=== PATIENT | male | born 1965 | race Hispanic/Latino ===

== ENCOUNTER → 2017-08-02 | Outpatient (CLI) | payer OTHER ==
[~2017-08-02] MED LIST: BIPOLAR MED; CEFUROXIME250 MG PO; FLOMAX0.4 MG PO; OMEPRAZOLE40 MG PO
--- NOTE | 2017-08-02 14:15 | Diagnostic Imaging Report ---
PROCEDURE:X-RAY ABDOMEN - KUB COMPARISON:None. INDICATIONS:CALCULUS OF KIDNEY FINDINGS: Nonobstructive bowel gas pattern. No signs of pneumoperitoneum. Right nephroureteral stent in place. Approximately 9 mm calcification overlying left renal pelvis, adjacent to the tip of the right nephroureteral stent. There is also a 2 mm calcification abutting the proximal right ureteral stent. No calcification overlying left renal shadow. No acute osseous abnormality. Left pelvic phleboliths. CONCLUSION: Approximately 9 mm calculus overlying right renal pelvis, adjacent to the tip of the right nephroureteral stent. A 2 mm calcification abutting the proximal right ureteral stent, likely a ureteral calculus. Nonobstructive bowel gas pattern. Dictated by: Reinaldo Lala M.D. on 08/02/2017 at 14:14 Electronically approved by: Reinaldo Lala M.D. on 08/02/2017 at 14:14
== END ==
LOC: RAD 12:29
PROVIDERS: ATTEND Urology
DX: N20.0 Calculus of kidney (principal)
CPT/HCPCS: 74018

== ENCOUNTER → 2017-08-13 | Day surgery (SDC) | payer OTHER ==
[~2017-08-13] MED LIST changes: +CEFAZOLIN SOD 1 GM VIAL ONE; +DEXAMETHASONE SOD PHOS INJ 4 MG/ML VIAL ONE; +FENTANYL CITRATE/PF 100MCG/2 ML INJ ONE; +IOPAMIDOL 610MG/1ML 300 MG/ML VIAL IV ONE; +LIDOCAINE HCL 2% LOCAL INJ 5 ML SDV VIAL INJ ONE; +MIDAZOLAM HCL 2 MG/2 ML VIAL ONE; +ONDANSETRON HCL INJ 2 MG/ML VIAL ONE; +PROPOFOL IV EMULSION 10 MG/ML 20 ML VIAL ONE; +SEVOFLURANE INHAL SOLN 250 ML PEN BTL ONE
--- OUTSIDE RECORDS SUMMARY | 2017-08-13 09:29 | XMS REPORT | Summary of Care ---
Author Author Vane Rutledge LVN Organization Unknown Address Unknown Phone Unavailable Care Team Providers Care Leader Tier Name Role Phone APOLINAR VARGAS N.P. Unavailable Unavailable SILVER Pabon, EDGAR Bay Unavailable Vane Rutledge LVN Unavailable Unavailable SILVER DIXON [place], EDGAR Tolliver Unavailable Unavailable Todd Centeno MD Unavailable Unavailable Unavailable Unavailable Functional Status Name Dates Details Functional status health issues are not documented Status: Name Dates Details Cognitive status health issues are not documented Status: Problems Name Dates Details Fatigue (780.79, R53.83) Status: Active Pain in hand (729.5, M79.643) Status: Active Cerumen impaction (380.4, H61.20) Status: Active Rectal pain (569.42, K62.89) Status: Active Abdominal pain (789.00, R10.9) Status: Active Constipation (564.00, K59.00) Status: Active Rectal pain (569.42, K62.89) Status: Active Anxiety (300.00, F41.9) Status: Active Insomnia (780.52, G47.00) Status: Active Acute frontal sinusitis (461.1, J01.10) Status: Active Chronic adhesive otitis media, bilateral (385.10, H74.13) Status: Active Acute upper respiratory infection (465.9, J06.9) Status: Active LOLA (obstructive sleep apnea) (327.23, G47.33) Status: Active Abdominal pain (789.00, R10.9) Status: Active Colon cancer screening (V76.51, Z12.11) Status: Active Vertigo (780.4, R42) Status: Active Hemorrhoids (455.6, K64.9) Status: Active Cellulitis (682.9, L03.90) Status: Active Acute suppurative otitis media (382.00, H66.009) Status: Active Cyst of buttocks (706.2, L72.9) Status: Active Impacted cerumen of left ear (380.4, H61.22) Status: Active Flu vaccine need (V04.81, Z23) Status: Active Otomycosis (111.8, B36.9) Status: Active GERD without esophagitis (530.81, K21.9) Status: Active Headache (784.0, R51) Status: Active Low back pain (724.2, M54.5) Status: Active Dysthymia (300.4, F34.1) Status: Active Left shoulder pain (719.41, M25.512) Status: Active Impingement syndrome of left shoulder (726.2, M75.42) Status: Active Shoulder pain, right (719.41, M25.511) Status: Active 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 * Refills: 0 Active TraMADol HCl - 50 MG Oral Tablet TAKE 1 TABLET EVERY 4 TO 6 HOURS NEEDED FOR PAIN. * Quantity: 60 Refills: 0 Active Tamsulosin HCl - 0.4 MG Oral Capsule TAKE 1 CAPSULE DAILY AT BEDTIME * Quantity: 30 Refills: 1 EDGAR SHEPPARD M.D. * Start : 05-Aug-2017 Active Cefuroxime Axetil 250 MG Oral Tablet TAKE 1 TABLET TWICE DAILY * Quantity: 14 Refills: 0 EDGAR SHEPPARD M.D. * Start : 05-Aug-2017 End : 12-Aug-2017 Active Oxybutynin Chloride ER 10 MG Oral Tablet Extended Release 24 Hour TAKE ONE TABLET BY MOUTH DAILY * Refills: 2 EDGAR SHEPPARD M.D. * Start : 07-Aug-2017 Active Allergies and Adverse Reactions Name Dates Details No Known Drug Allergies (Allergy) Status: Active Past Medical History Name Dates Details History of backache (V13.59, Z87.39) Status: Resolved History of headache (V13.89, Z87.898) Status: Resolved Procedures Procedure Dates Details History of Cholecystectomy Completed History of Hernia Repair Completed History of arm surgery Completed Immunization Name Dates Details Fluzone INJ Lot #: [id number] on: 11-Apr-2016 Family History Name Dates Details Family history of Diabetes Mellitus (V18.0) Status: Active Name Dates Details Family history of Hypertension (V17.49) Status: Active Social History Name Dates Details - Status: Name Dates Details Never smoker Vital Signs Date Test Result Details [id number] BP Systolic 113 mm[Hg] Status: Comments: Location: LUE; Position: Sitting BP Diastolic 88 mm[Hg] Status: Comments: Location: LUE; Position: Sitting Height 67 in Status: Weight 177.8 lb Status: Body Mass Index Calculated 27.85 kg/m2 Status: Body Surface Area Calculated 1.92 m2 Status: Temperature 98.6 f Status: Comments: Method: Oral Heart Rate 105 /min Status: Respiration Rate 16 /min Status: Results Date Description Value Details Results not documented Plan of Care Name Dates Details Planned Observations Planned Goals not documented Instructions Name Dates Details Instructions not documented Encounters Appointment; APOLINAR VARGAS NP Encounter Diagnosis: Problem not documented On: 01-Sep-2015 10:00 Appointment; TODD CENTENO M.D. Encounter Diagnosis: Problem not documented On: 26-Sep-2015 13:45 Appointment; APOLINAR VARGAS NP Encounter Diagnosis: Problem not documented On: 29-Feb-2016 9:45 Appointment; APOLINAR VARGAS NP Encounter Diagnosis: Problem not documented On: 11-Apr-2016 9:00 Appointment; TODD CENTENO M.D. Encounter Diagnosis: Problem not documented On: 05-Jun-2016 13:30 Appointment; TODD CENTENO M.D. Encounter Diagnosis: Problem not documented On: 05-Jun-2016 14:30 Appointment; TODD CENTENO M.D. Encounter Diagnosis: Problem not documented On: 15-Jun-2016 15:30 Appointment; TODD CENTENO M.D. Encounter Diagnosis: Problem not documented On: 22-Jun-2016 15:30 Appointment; TODD CENTENO M.D. Encounter Diagnosis: Problem not documented On: 27-Aug-2016 15:45 Appointment; TODD CENTENO M.D. Encounter Diagnosis: Problem not documented On: 04-Sep-2016 9:30 Appointment; APOLINAR VARGAS NP Encounter Diagnosis: Problem not documented On: 18-Sep-2016 9:30 Appointment; EDGAR SHEPPARD M.D. Encounter Diagnosis: Problem not documented On: 21-Nov-2016 14:45 Appointment; SHERRI GALVIN M.D. Encounter Diagnosis: Problem not documented On: 27-Nov-2016 11:00 Appointment; SHERRI GALVIN M.D. Encounter Diagnosis: Problem not documented On: 25-Dec-2016 10:15 Appointment; TODD CENTENO M.D. Encounter Diagnosis: Problem not documented On: 19-Apr-2017 8:15 Appointment; NELIDA WINCHESTER NP Encounter Diagnosis: Problem not documented On: 08-Jul-2017 16:00 Appointment; EDGAR SHEPPARD M.D. Encounter Diagnosis: Problem not documented On: 05-Aug-2017 14:45
--- OUTSIDE RECORDS SUMMARY | 2017-08-13 09:29 | XMS REPORT ---
[facility] Address Unknown Phone Unavailable Care Team Providers Care Supervisor Vacuum [employer]izing Name Role Phone GUERRERO HILL Unavailable Unavailable Problems This patient has no known problems. Allergies, Adverse Reactions, Alerts This patient has no known allergies or adverse reactions. Medications This patient has no known medications. Results Test Description Test Time Test Comments Text Results Atomic Results Result Comments ABDOMEN-1VIEW (KUB) [place] [id number] Patient Name: CAREY RIOS MR #: [id number] : 1965 Age/Sex: 51/M Req #: [id number] Adm Physician: Ordered by: GUERRERO HILL MD Report #: [id number] Location: [facility] Room/Bed: Procedure: [id number] DX/ABDOMEN-1VIEW (KUB) Exam Date: 08/02/17 Exam Time: 1225 REPORT STATUS: Signed PROCEDURE: X-RAY ABDOMEN - KUB COMPARISON: None. INDICATIONS: CALCULUS OF KIDNEY FINDINGS: Nonobstructive bowel gas pattern. No signs of pneumoperitoneum. Right nephroureteral stent in place. Approximately 9 mm calcification overlying left renal pelvis, adjacent to the tip of the right nephroureteral stent. There is also a 2 mm calcification abutting the proximal right ureteral stent. No calcification overlying left renal shadow. No acute osseous abnormality. Left pelvic phleboliths. CONCLUSION: Approximately 9 mm calculus overlying right renal pelvis, adjacent to the tip of the right nephroureteral stent. A 2 mm calcification abutting the proximal right ureteral stent, likely a ureteral calculus. Nonobstructive bowel gas pattern. Dictated by: Reinaldo Foster M.D. on 08/02/2017 at 14:14 Electronically approved by: Reinaldo Foster M.D. on 08/02/2017 at 14 :14 Dictated By: REINALDO FOSTER MD [id number] Transcribed By: LEAH on 08/02/17 1414 COPY TO: GUERRERO HILL MD
--- NOTE | 2017-08-13 23:20 | Operative Report ---
DATE OF PROCEDURE: August 13, 2017 SERVICE: Urology. PREOPERATIVE DIAGNOSES: 1. Right nephrolithiasis. 2. Right double-J stent. POSTOPERATIVE DIAGNOSES: 1. Right nephrolithiasis. 2. Right double-J stent. OPERATION PERFORMED: Extracorporeal shock wave lithotripsy of right kidney stone. TEMPLATE CLERK: None. ANESTHESIA: General. CLINICAL INDICATION NOTE: This is a 51-year-old patient that had stone in the upper ureter, it was pushed up into the kidney. He has a double-J stent in place. Stone is about 1.2 cm in length. The patient was brought for lithotripsy. Patient was advised about the procedure, potential benefits and complications, and accepts them. DESCRIPTION OF PROCEDURE AND FINDINGS: After proper level of anesthesia was achieved, the patient was placed in supine position. The stone was identified and brought into focus of treatment. The stone was treated with 2000 shocks. The first 300 were at 60 per minute, then it was increased to 90, and then to 120. The stone disintegrated very well. Patient tolerated the procedure well, was transferred in satisfactory condition to recovery room. He will be followed as outpatient. Additional procedure will be required to remove the double-J stent and reassess if there is any stone left. Job#: [id number]
== END | disposition home or self-care (01) ==
LOC: OR 09:27
PROVIDERS: ATTEND Urology
DX: N20.0 Calculus of kidney (principal); Z96.0 Presence of urogenital implants; I10 Essential (primary) hypertension; F31.9 Bipolar disorder, unspecified; Z01.810 Encounter for preprocedural cardiovascular examination
CPT/HCPCS: 50590; 93005; J0690; J1100; J2001; J2250; J2405

== ENCOUNTER → 2017-09-06 | Outpatient (CLI) | payer BC ==
[~2017-09-06] MED LIST changes: -CEFAZOLIN SOD 1 GM VIAL ONE; -DEXAMETHASONE SOD PHOS INJ 4 MG/ML VIAL ONE; -FENTANYL CITRATE/PF 100MCG/2 ML INJ ONE; -IOPAMIDOL 610MG/1ML 300 MG/ML VIAL IV ONE; -LIDOCAINE HCL 2% LOCAL INJ 5 ML SDV VIAL INJ ONE; -MIDAZOLAM HCL 2 MG/2 ML VIAL ONE; -ONDANSETRON HCL INJ 2 MG/ML VIAL ONE; -PROPOFOL IV EMULSION 10 MG/ML 20 ML VIAL ONE; -SEVOFLURANE INHAL SOLN 250 ML PEN BTL ONE
--- NOTE | 2017-09-06 14:54 | Diagnostic Imaging Report ---
PROCEDURE:X-RAY ABDOMEN - KUB COMPARISON:[facility], DX, ABDOMEN-1VIEW (KUB), 08/02/2017, 12:38. INDICATIONS:CALCULUS OF KIDNEY FINDINGS: Stable right double-J internal ureteral stent. The previously described 9 mm calcification adjacent to the stent upper pigtail and 2 mm calcification abutting the proximal aspect of the stent are not seen on the current exam. No radiopaque densities overlie the genitourinary system. Stable left pelvic phleboliths. No acute bony abnormalities. CONCLUSION: No calcifications overlie the genitourinary system. The previously described calcifications adjacent to the stent upper pigtail and 2 mm calcification abutting the proximal aspect of the stent are not seen in the current exam. Surya Martin M.D. Dictated by: Surya Martin M.D. on 09/06/2017 at 14:55 Electronically approved by: Surya Martin M.D. on 09/06/2017 at 14:55
== END ==
LOC: RAD 12:46
PROVIDERS: ATTEND Urology
DX: N20.0 Calculus of kidney (principal)
CPT/HCPCS: 74018

== ENCOUNTER → 2017-10-02 | Day surgery (SDC) | payer BC ==
[~2017-10-02] MED LIST changes: +BELLADONNA/OPIUM 60 MG SUPP PR ONE; +CEFAZOLIN SOD 1 GM VIAL ONE; +DEXAMETHASONE SOD PHOS INJ 4 MG/ML VIAL ONE; +FENTANYL CITRATE/PF 100MCG/2 ML INJ ONE; +IOPAMIDOL 610MG/1ML 300 MG/ML VIAL IV ONE; +LIDOCAINE HCL 2% LOCAL INJ 5 ML SDV VIAL INJ ONE; +MIDAZOLAM HCL 2 MG/2 ML VIAL ONE; +ONDANSETRON HCL INJ 2 MG/ML VIAL ONE; +PROPOFOL IV EMULSION 10 MG/ML 20 ML VIAL ONE; +SEVOFLURANE INHAL SOLN 250 ML PEN BTL ONE
--- NOTE | 2017-10-02 14:02 | Operative Report ---
DATE OF PROCEDURE: October 02, 2017 SERVICE: Urology PREOPERATIVE DIAGNOSES 1. Right nephrolithiasis, upper ureter. 2. Stents on the right side. 3. Hematuria. 4. Question of filling defect, left ureter. OPERATIONS PERFORMED 1. Cystoscopy removal of double J stent from the right side. 2. Right retrograde pyelograms under fluoroscopic control. 3. Right ureteroscopy removal of small calculi. 4. Placement of double J stent on the right side, a 7-Burundian 24 cm long. 5. Left retrograde pyelograms under fluoroscopic control. 6. Left ureteroscopy diagnostic. 7. Interpretation of x-ray, radiologist not present. 8. Supervision of fluoroscopy, radiologist not present. SURGEON: Daniel Wagner MD YACHT CAPTAIN: None. ANESTHESIA: General. CLINICAL INDICATION NOTE: This is a 52-year-old patient who has a stone on the right side. He was brought for reassessment, removal of stent and possibly ureteroscopy and fragmentation of stone. Procedure was discussed with the patient. Potential benefit and complication discussed, explained accepted. DESCRIPTION OF PROCEDURE AND FINDINGS: After proper level of anesthesia was achieved, the patient was placed in lithotomy position, prepped and draped in sterile fashion. Urethra inspected, is unremarkable. The bladder outlet is normal. Bladder mucosa is somewhat irritated from the stent. The double J stent is protruding from the right ureteral orifice. It was pulled to the urethral meatus. An open-end catheter was passed up to the right side. Retrograde pyelograms were done under fluoroscopic control suggesting calcification in the upper ureter and some dilation of the collecting system on the right side. The guidewire was kept in place and flexible ureteroscopy was done. Some stones were identified in the upper ureter and they were removed. No other big stones were identified. Renal pelvis is free from any stones. Guidewire was kept in place and a double J stent, 7-Burundian 24 cm long was positioned properly. This is done due to the instrumentation and some irritation of the ureters as well as the meatus. Following this, open-end catheter was inserted to the left side and there is a question of a filling defect in the distal ureter and therefore guidewire was kept in place and a semi-rigid ureteroscope was inserted by the wire. No stones were identified or any lesions. Elected not to place a double J stent on this side. The bladder was then irrigated. The scope was removed. Patient was transferred in satisfactory condition to recovery room. Job#: [id number] LANETTE
== END | disposition home or self-care (01) ==
LOC: OR 06:32
PROVIDERS: ATTEND Urology
CPT/HCPCS: 74420; 88300; C2617; J0690; J1100; J2001; J2250; J2405

== ENCOUNTER 2017-10-17 12:58 | Emergency (ER) | payer BC ==
[~2017-10-17] VITALS: Ht 170.2 cm; Wt 79.4 kg
[~2017-10-17 12:58] MED LIST changes: -BELLADONNA/OPIUM 60 MG SUPP PR ONE; -CEFAZOLIN SOD 1 GM VIAL ONE; -DEXAMETHASONE SOD PHOS INJ 4 MG/ML VIAL ONE; -FENTANYL CITRATE/PF 100MCG/2 ML INJ ONE; -IOPAMIDOL 610MG/1ML 300 MG/ML VIAL IV ONE; -LIDOCAINE HCL 2% LOCAL INJ 5 ML SDV VIAL INJ ONE; -MIDAZOLAM HCL 2 MG/2 ML VIAL ONE; -ONDANSETRON HCL INJ 2 MG/ML VIAL ONE; -PROPOFOL IV EMULSION 10 MG/ML 20 ML VIAL ONE; -SEVOFLURANE INHAL SOLN 250 ML PEN BTL ONE
[2017-10-17] MEDS ORDERED: SODIUM CHLORIDE 0.9% 1000ML 1,000 ML IV STA (13:17)
[2017-10-17] MEDS ORDERED: MORPHINE SULFATE 2 MG/ML SYR IV STA (13:17)
[2017-10-17 13:28] LABS: BILIRUBIN,URINE NEGATIVE (NEGATIVE); CLARITY,URINE SL CLOUDY (CLEAR); COLOR,URINE YELLOW (YELLOW); KETONES,URINE NEGATIVE (NEGATIVE); LEUKOCYTE ESTERASE ,URINE 1+ (NEGATIVE); NITRITE,URINE POSITIVE (NEGATIVE); PROTEIN,URINE DIPSTICK TRACE (NEGATIVE); URINE UROBILINOGEN 0.2 mg/dL (0.2 - 1)
[2017-10-17 13:37] LABS: BACTERIA,URINE MODERATE /HPF; EPITHELIAL CELLS,URINE RARE /LPF; WBC,URINE (MAN) 21-50 /HPF (0-5)
[2017-10-17 13:42] LABS: BASOPHILS % 0.4 % (0.0-1.0); EOSINOPHILS # (AUTO) 0.3 (0.0-0.4); EOSINOPHILS % 3.8 % (0.0-6.0); HEMOGLOBIN 14.9 g/dL (14.0-18.0); LYMPHOCYTES # (AUTO) 2.2 (1.0-3.2); MEAN CORPUSCULAR HEMOGLOBIN 29.2 pg (28-32); MEAN CORPUSCULAR HGB CONC 33.9 g/dL (31-35); MEAN CORPUSCULAR VOLUME 86.1 fL (81-99); MONOCYTES # (AUTO) 0.5 (0.2-0.8); MONOCYTES % 7.5 % (4.4-11.3); NEUTROPHILS # (AUTO) 4.2 (2.1-6.9); NEUTROPHILS % 58.2 % (38.7-80.0); PLATELET COUNT 313 x10e3/uL (140-360); RED BLOOD COUNT 5.11 x10e6/uL (4.3-5.7)
[2017-10-17 13:55] LABS: ALANINE AMINOTRANSFERASE 30 IU/L (0-55); ALBUMIN 4.3 g/dL (3.5-5.0); ALBUMIN/GLOBULIN RATIO 1.2 (0.8-2.0); ALKALINE PHOSPHATASE 97 IU/L (40-150); ANION GAP 13.9 mmol/L (8-16); BLOOD UREA NITROGEN 10 mg/dL (7-26); BUN/CREATININE RATIO 12 (6-25); CARBON DIOXIDE 26 mmol/L (22-29); CHLORIDE 102 mmol/L (98-107); CREATININE, SERUM 0.83 mg/dL (0.72-1.25); EST GLOMERULAR FILTRATION RATE > 60 ML/MIN (60-); GLUCOSE 96 mg/dL (74-118); POTASSIUM 3.9 mmol/L (3.5-5.1); SODIUM 138 mmol/L (136-145)
--- NOTE | 2017-10-17 14:13 | Diagnostic Imaging Report ---
PROCEDURE: CT ABDOMEN AND PELVIS WITHOUT CONTRAST TECHNIQUE: The abdomen and pelvis were scanned utilizing a multidetector helical scanner from the diaphragm to the lesser trochanter after the oral administration of water. No IV contrast was administered per physician's request. Coronal and sagittal multiplanar reformations were obtained. COMPARISON: None. INDICATIONS: LOW BACK PAIN, RADIATES TO RIGHT FLANK FINDINGS: ABSENCE OF INTRAVENOUS CONTRAST DECREASES SENSITIVITY FOR DETECTION OF FOCAL LESIONS AND VASCULAR PATHOLOGY. LOWER THORAX: Linear subsegmental atelectasis versus scarring in the anterior left lower lobe (series 3, image 12). HEPATOBILIARY: No focal hepatic lesions. No biliary ductal dilatation. Cholecystectomy clips. SPLEEN: No splenomegaly. PANCREAS: No focal masses or ductal dilatation. ADRENALS: No adrenal nodules. KIDNEYS/URETERS: Right: Right double-J internal ureteral stent in place. No hydronephrosis, hydroureter, or evidence of obstruction. 5-6 mm and 3-4 mm nonobstructing calculi in the inferior pole (series 3, images 64 and 66). No contour abnormalities. No significant perinephric stranding. Left: No renal or ureteral calculi, hydronephrosis, or obstruction. 2.1 x 2.0 x 1.9 cm fluid density lesion in the superior to mid aspect (series 3, image 44), which contains a thin linear rim calcification. Other contour abnormalities. No significant perinephric stranding. PELVIC ORGANS/BLADDER: Bladder is unremarkable. No bladder calculi. Dystrophic calcification in the prostate. PERITONEUM / RETROPERITONEUM: No free air or fluid. LYMPH NODES: No lymphadenopathy. VESSELS: Unremarkable. GI TRACT: No bowel dilation or evidence of obstruction. The appendix is well identified and normal in caliber. BONES AND SOFT TISSUES: No aggressive lytic lesions. Tiny fat containing umbilical hernia. Soft tissues are otherwise unremarkable. IMPRESSION: 1. no ureteral or bladder calculi, hydronephrosis, or obstruction. Right double-J ureteral stent in place. 2. 5-6 mm and 3-4 mm nonobstructing calculi in the inferior pole of the right kidney Surya Martin M.D. Dictated by: Surya Martin M.D. on 10/17/2017 at 14:15 Electronically approved by: Surya Martin M.D. on 10/17/2017 at 14:15
[2017-10-17] MEDS ORDERED: KETOROLAC TROMETHAMINE 30 MG/ML VIAL IV STA (14:45)
[2017-10-17] MEDS ORDERED: HYDROCODONE/APAP 10MG-325MG TAB PO ONE (14:45)
== END 2017-10-17 15:05 | disposition home or self-care (01) ==
LOC: ER 12:58
DX: N30.01 Acute cystitis with hematuria (principal); N20.0 Calculus of kidney; R10.31 Right lower quadrant pain; I10 Essential (primary) hypertension; Z96.0 Presence of urogenital implants
CPT/HCPCS: 36415; 74176; 80053; 81001; 85025; 87086; 96374; 99284; J1885; J2270; J7030

== ENCOUNTER → 2017-10-18 | Outpatient (CLI) | payer BC ==
--- NOTE | 2017-10-18 13:54 | Diagnostic Imaging Report ---
PROCEDURE:X-RAY ABDOMEN - KUB COMPARISON: CT abdomen/pelvis 10/17/17 INDICATIONS:CALCULUS OF THE KIDNEY FINDINGS: Lines/tubes: A stent in the right ureter is stable. No calculus along the course of the stent. No encrustation. Cholecystectomy clips are present. Bowel: Unremarkable bowel gas pattern. No dilated bowel loops. Calcifications: Calculus in the lower pole of the right kidney measures approximately 5 mm. A smaller calculus identified on CT is not visible by x-ray. No calculus over the left renal shadow or along expected course of the left ureter. Organomegaly: None. Lung bases: Clear. Visualized median sternotomy wires are intact. Bones/soft tissues: Unremarkable. CONCLUSION: Single calculus in the lower pole the right kidney as described above. No calculus along the course of the right ureteral stent. Dictated by: Margarette Quarles M.D. on 10/18/2017 at 13:57 Electronically approved by: Margarette Quarles M.D. on 10/18/2017 at 13:57
== END ==
LOC: RAD 12:28
PROVIDERS: ATTEND Urology
DX: N20.0 Calculus of kidney (principal)
CPT/HCPCS: 74018

== ENCOUNTER → 2017-11-08 | Day surgery (SDC) | payer BC ==
[~2017-11-08] MED LIST changes: +CEFAZOLIN SOD 1 GM VIAL ONE; +DEXAMETHASONE SOD PHOS INJ 4 MG/ML VIAL ONE; +FENTANYL CITRATE/PF 100MCG/2 ML INJ ONE; +LIDOCAINE HCL 2% LOCAL INJ 5 ML SDV VIAL INJ ONE; +MIDAZOLAM HCL 2 MG/2 ML VIAL ONE; +ONDANSETRON HCL INJ 2 MG/ML VIAL ONE; +PROPOFOL IV EMULSION 10 MG/ML 20 ML VIAL ONE
--- NOTE | 2017-11-09 15:23 | Operative Report ---
DATE OF PROCEDURE: November 08, 2017 SERVICE: Urology. PREOPERATIVE DIAGNOSES: 1. Right nephrolithiasis. 2. Right double-J stent. 3. Microhematuria. POSTOPERATIVE DIAGNOSES: 1. Right nephrolithiasis. 2. Right double-J stent. 3. Microhematuria. OPERATION PERFORMED: Extracorporeal shock wave lithotripsy of right kidney stone. HEEL LAYER: None. ANESTHESIA: General. CLINICAL INDICATION NOTE: This is a 52-year-old patient who was brought for treatment of nephrolithiasis. He is planned to have lithotripsy and this is the next step in management. Procedure was discussed with the patient and he is aware that most probably the stent will be kept in place until removal at a later date. DESCRIPTION OF PROCEDURE AND FINDINGS: After the proper level of anesthesia was achieved, the patient was placed in supine position. The stones appeared to be small. They were found and brought to focus of treatment. One stone was near the proximal part of the double-J and the other one a little lower near the stent. 2000 shocks were used. The first 300 were at 60 per minute, then it was increased gradually to 90 per minute, and eventually to 120 per minute. The stone disintegrated. Patient tolerated the procedure well, was transferred in satisfactory condition to recovery room. He will be followed as outpatient. Job#: [id number]
--- OUTSIDE RECORDS SUMMARY | 2018-02-19 14:05 | XMS REPORT | Continuity of Care Document ---
Author Author [facility] Organization [facility] Address [address] [place] [address] Phone Unavailable Care Team Providers Care Analytics Developer Name Role Phone EDGAR SHEPPARD MD PCP Insurance Providers Guarantor Peterson Akins Address [address] [place] [address] Email NONE [facility] Policy Number [id number] Subscriber's Name Peterson Akins Relationship 18 Self / Same As Patient Effective Date 17 Advance Directives Directive Response Recorded Date/Time Does the patient have an advance directive? No 08/02/17 12:26pm If yes, is advance directive on file with [facility]? No 08/02/17 12:26pm If not on file with [facility] will patient provide a copy? No 08/02/17 12:26pm Do you have a Directive to Physician? No 10/17/17 1:15pm Do you have a Medical Power of Brim Ironer Hand? No 10/17/17 1:15pm Do you have an out of hospital Do Not Resuscitate Order? No 10/17/17 1:15pm Do you have any special needs we should be aware of? No 10/17/17 1:15pm Do you have a support person here with you today? No 10/17/17 1:15pm Did patient receive Notice of Privacy Practices? Yes 10/17/17 1:15pm Did patient receive patient rights and responsibilities? Yes 10/17/17 1:15pm Problems No problem information available. Medications Current Home Medications Medication Dose Units Route Directions Days Qty Instructions Start Date Omeprazole 40 Mg Capsule.dr 40 Mg Oral Daily Past Home Medications Medication Directions Ordered Status Bipolar Med , Discontinued Cefuroxime Axetil (Cefuroxime) 250 Mg Tablet, 250 Mg Oral Every 12 Hours Discontinued Tamsulosin Hcl (Flomax*) 0.4 Mg Cap, 0.4 Mg Oral Bedtime Discontinued Social History Smoking Status Start Date Stop Date Never Smoker Hospital Discharge Instructions No hospital discharge instruction information available. Plan of Care Discharge Date 10/17/17 3:05pm Disposition HOME, SELF-CARE Condition at Discharge Stable Instructions/Education Provided Back Pain Urinary Tract Infection - Men Forms Provided Work/School Excuse Prescriptions See Medication Section Referrals GUERRERO WAGNER MD Order Date: Call for an appointment Address: [address] [place] [id number] Additional Instructions/Education Call for follow up appointment to see your Dr. Alicia Wagner as planned in one week. Take over the counter Motrin or Tylenol medication as needed for comfort. Begin taking the antibiotic today as prescribed. If prescribed pain medication on discharge, take the pain medication as prescribed and adhere to the warnings given for pain medication such as no swimming, driving operating heavy machinery, drinking or mixing with other medications that can interact with the narcotic. discussed at the bedside, drink fluids, rest and return to the emergency department for any fever, shortness of breath, chest pain, abdominal pain, trouble handling oral secretions or any new concerns. Functional Status No functional status information available. Allergies, Adverse Reactions, Alerts No known allergies. Immunizations No immunization information available. Vital Signs Acute Vital Signs Vital Response Date/Time Height 5 ft 7 in 10/17/2017 1:14pm Weight 175 lb 10/17/2017 1:14pm Body Mass Index 27.4 kg/m^2 10/17/2017 1:14pm Results Laboratory Results Test Name Result Units Flags Reference Collection Date/Time Result Date/ Time Comments White Blood Count 7.16 x10e3/uL 4.8-10.8 10/17/2017 1:20pm 10/17/2017 1 :43pm Red Blood Count 5.11 x10e6/uL 4.3-5.7 10/17/2017 1:20pm 10/17/2017 1: 43pm Hemoglobin 14.9 g/dL 14.0-18.0 10/17/2017 1:2010/17/2017 1:43pm Hematocrit 44.0 % 38.2-49.6 10/17/2017 1:2010/17/2017 1:43pm Mean Corpuscular Volume 86.1 fL 81-99 10/17/2017 1:2010/17/2017 1: 43pm Mean Corpuscular Hemoglobin 29.2 pg 28-32 10/17/2017 1:20pm 10/17/2017 1:43pm Mean Corpuscular Hemoglobin Concent 33.9 g/dL 31-35 10/17/2017 1:pm 10/17/2017 1:43pm Red Cell Distribution Width 13.0 % 11.7-14.4 10/17/2017 1:pm 2017 1:43pm Platelet Count 313 x10e3/uL 140-360 10/17/2017 1:20pm 10/17/2017 1: 43pm Neutrophils (%) (Auto) 58.2 % 38.7-80.0 10/17/2017 1:20pm 10/17/2017 1: 43pm Lymphocytes (%) (Auto) 30.0 % 18.0-39.1 10/17/2017 1:10/17/2017 1: 43pm Monocytes (%) (Auto) 7.5 % 4.4-11.3 10/17/2017 1:10/17/2017 1: 43pm Eosinophils (%) (Auto) 3.8 % 0.0-6.0 10/17/2017 1:10/17/2017 1: 43pm Basophils (%) (Auto) 0.4 % 0.0-1.0 10/17/2017 1:10/17/2017 1:43pm IM GRANULOCYTES % 0.1 % 0.0-1.0 10/17/2017 1:20pm 10/17/2017 1:43pm Neutrophils # (Auto) 4.2 2.1-6.9 10/17/2017 1:10/17/2017 1:43pm Lymphocytes # (Auto) 2.2 1.0-3.2 10/17/2017 1:20pm 10/17/2017 1:43pm Monocytes # (Auto) 0.5 0.2-0.8 10/17/2017 1:20pm 10/17/2017 1:43pm Eosinophils # (Auto) 0.3 0.0-0.4 10/17/2017 1:20pm 10/17/2017 1:43pm Basophils # (Auto) 0.0 0.0-0.1 10/17/2017 1:20pm 10/17/2017 1:43pm Absolute Immature Granulocyte (auto 0.01 x10e3/uL 0-0.1 10/17/2017 1: 20pm 10/17/2017 1:43pm Urine Color YELLOW YELLOW 10/17/2017 1:18pm 10/17/2017 1:28pm Urine Clarity SL CLOUDY H CLEAR 10/17/2017 1:18pm 10/17/2017 1:28pm Urine Specific [place] 1.010 1.010-1.025 10/17/2017 1:18pm 2017 1:28pm Urine pH 7 5 - 7 10/17/2017 1:18pm 10/17/2017 1:28pm Urine Leukocyte Esterase 1+ H NEGATIVE 10/17/2017 1:18pm 10/17/2017 1: 28pm Urine Nitrite POSITIVE H NEGATIVE 10/17/2017 1:18pm 10/17/2017 1:28pm Urine Protein TRACE H NEGATIVE 10/17/2017 1:18pm 10/17/2017 1:28pm Urine Glucose (UA) NEGATIVE NEGATIVE 10/17/2017 1:18pm 10/17/2017 1: 28pm Urine Ketones NEGATIVE NEGATIVE 10/17/2017 1:18pm 10/17/2017 1:28pm Urine Urobilinogen 0.2 mg/dL 0.2 - 1 10/17/2017 1:18pm 10/17/2017 1: 28pm Urine Bilirubin NEGATIVE NEGATIVE 10/17/2017 1:18pm 10/17/2017 1: 28pm Urine Blood 1+ H NEGATIVE 10/17/2017 1:18pm 10/17/2017 1:28pm Urine WBC 21-50 /HPF H 0-5 10/17/2017 1:18pm 10/17/2017 1:37pm Urine RBC 11-20 /HPF H 0-5 10/17/2017 1:18pm 10/17/2017 1:37pm Urine Bacteria MODERATE /HPF H NONE 10/17/2017 1:18pm 10/17/2017 1:37pm Urine Epithelial Cells RARE /LPF NONE 10/17/2017 1:18pm 10/17/2017 1: 37pm Sodium Level 138 mmol/L 136-145 10/17/2017 1:2010/17/2017 1:55pm Potassium Level 3.9 mmol/L 3.5-5.1 10/17/2017 1:2010/17/2017 1:55pm Chloride Level 102 mmol/L 98-107 10/17/2017 1:20pm 10/17/2017 1:55pm Carbon Dioxide Level 26 mmol/L 22-29 10/17/2017 1:20pm 10/17/2017 1: 55pm Anion Gap 13.9 mmol/L 8-16 10/17/2017 1:20pm 10/17/2017 1:55pm Blood Urea Nitrogen 10 mg/dL 7-10/17/2017 1:10/17/2017 1:55pm Creatinine 0.83 mg/dL 0.72-1.25 10/17/2017 1:2010/17/2017 1:55pm BUN/Creatinine Ratio 12 6-10/17/2017 1:pm 10/17/2017 1:55pm Estimat Glomerular Filtration Rate > 60 ML/MIN 60- 10/17/2017 1:20pm 1:55pm Ranges were taken from the National Kidney Disease Education Program and the National [employer] literature. Reference ranges: 60 or greater: Normal 16-59 (for 3 consecutive months): Chronic kidney disease 15 or less: Kidney failure Glucose Level 96 mg/dL 74-118 10/17/2017 1:2010/17/2017 1:55pm Calcium Level 10.0 mg/dL 8.4-10.2 10/17/2017 1:2010/17/2017 1:55pm Total Bilirubin 0.9 mg/dL 0.2-1.2 10/17/2017 1:20pm 10/17/2017 1:55pm Aspartate Amino Transf (AST/SGOT) 17 IU/L 5-34 10/17/2017 1:202017 1:55pm Alanine Aminotransferase (ALT/SGPT) 30 IU/L 0-55 10/17/2017 1:20pm 1:55pm Total Protein 8.0 g/dL 6.5-8.1 10/17/2017 1:20pm 10/17/2017 1:55pm Albumin 4.3 g/dL 3.5-5.0 10/17/2017 1:20pm 10/17/2017 1:55pm Globulin 3.7 g/dL H 2.3-3.5 10/17/2017 1:20pm 10/17/2017 1:55pm Albumin/Globulin Ratio 1.2 0.8-2.0 10/17/2017 1:20pm 10/17/2017 1: 55pm Alkaline Phosphatase 97 IU/L 40-150 10/17/2017 1:20pm 10/17/2017 1: 55pm Procedures Procedure Status Date Provider(s) FRAGMENTING OF KIDNEY STONE Completed 08/13/17 GUERRERO WAGNER MD CYSTOSCOPY AND TREATMENT Completed 10/02/17 GUERRERO WAGNER MD CYSTOURETERO W/STONE REMOVE Completed 10/02/[address] of abdomen and pelvis without contrast Active 10/17/17 VERONIQUE MCCORMACK [employer] Encounters Encounter Location Arrival/Admit Date Discharge/Depart Date Attending Provider [facility] 10/17/17 12:58pm 10/17 3:05pm ROXANNE BOUCHER MD Registered [facility] Day [facility] 10/02/17 6:32am GUERRERO WAGNER MD Registered Clinic [facility] 09/06/17 12:46pm GUERRERO WAGNER MD Registered Surgical Day [facility] 08/13/17 9:27am GUERRERO WAGNER MD Registered Clinic [facility] 08/02/17 12:29pm GUERRERO WAGNER MD
== END | disposition home or self-care (01) ==
LOC: EDSEX → OR 12:04
PROVIDERS: ATTEND Urology
DX: N20.0 Calculus of kidney (principal); Z96.0 Presence of urogenital implants; K21.9 Gastro-esophageal reflux disease without esophagitis
CPT/HCPCS: 50590; 88300; J0690; J1100; J2001; J2250; J2405

== ENCOUNTER → 2017-12-20 | Outpatient (CLI) | payer BC ==
[~2017-12-20] MED LIST changes: -CEFAZOLIN SOD 1 GM VIAL ONE; -DEXAMETHASONE SOD PHOS INJ 4 MG/ML VIAL ONE; -FENTANYL CITRATE/PF 100MCG/2 ML INJ ONE; -LIDOCAINE HCL 2% LOCAL INJ 5 ML SDV VIAL INJ ONE; -MIDAZOLAM HCL 2 MG/2 ML VIAL ONE; -ONDANSETRON HCL INJ 2 MG/ML VIAL ONE; -PROPOFOL IV EMULSION 10 MG/ML 20 ML VIAL ONE
--- NOTE | 2017-12-20 16:42 | Diagnostic Imaging Report ---
PROCEDURE:X-RAY ABDOMEN - KUB COMPARISON:KUB 10/18/2017 INDICATIONS:FOLLOW UP KIDNEY STONES FINDINGS: Right ureteral stent with in place. Two inferior pole stones on CT 10/17/2017 and KUB 10/18/2017 are less conspicuous. The hepatic flexure which contains stool overlies the inferior right renal pole, limiting evaluation. There are no calcifications projected over the left renal silhouette, expected course of the ureters or bladder. Stable phleboliths in the left pelvis. There is a non-obstructed bowel-gas pattern. There are no acute osseous abnormalities. The lung bases are clear. Stable blunting of the left costophrenic sulcus, likely scarring or trace effusion. Multiple surgical clips overlie the right upper quadrant. Median sternotomy wires. CONCLUSION: Limited evaluation of the inferior pole of the right kidney secondary to stool at the hepatic flexure. The two previously seen two lower pole stones in the right kidney are not well visualized. Dictated by: Zi Cotto M.D. on 12/20/2017 at 16:47 Electronically approved by: Zi Cotto M.D. on 12/20/2017 at 16:47
== END ==
LOC: RAD 14:44 → EDSEX 14:44
PROVIDERS: ATTEND Urology
DX: N20.0 Calculus of kidney (principal)
CPT/HCPCS: 74018

== ENCOUNTER → 2018-01-03 | Day surgery (SDC) | payer BC ==
[~2018-01-03] MED LIST changes: +CEFAZOLIN SOD 1 GM VIAL ONE; +DEXAMETHASONE SOD PHOS INJ 4 MG/ML VIAL ONE; +FENTANYL CITRATE/PF 100MCG/2 ML INJ ONE; +GLYCOPYRROLATE INJ 1MG/ 5 ML SYR ONE; +IOPAMIDOL 300MG/ML 50ML INFUS..BTL IV ONE; +LIDOCAINE HCL 2% LOCAL INJ 5 ML SDV VIAL INJ ONE; +MIDAZOLAM HCL 2 MG/2 ML VIAL ONE; +NEOSTIGMINE 5 MG/5ML SYR ONE; +ONDANSETRON HCL INJ 2 MG/ML VIAL ONE; +PROPOFOL IV EMULSION 10 MG/ML 20 ML VIAL ONE; +ROCURONIUM BROMIDE 10 MG/ML 5ML VIAL ONE; +SEVOFLURANE INHAL SOLN 250 ML PEN BTL ONE; +SUCCINYLCHOLINE 200 MG/10 ML SYR ONE
--- NOTE | 2018-01-03 20:26 | Operative Report ---
DATE OF PROCEDURE: January 03, 2018 SERVICE: Urology. PREOPERATIVE DIAGNOSES 1. Right nephrolithiasis. 2. Right double J stent. 3. Right hydronephrosis. 4. Microhematuria. POSTOPERATIVE DIAGNOSES 1. Right nephrolithiasis. 2. Right double J stent. 3. Right hydronephrosis. 4. Microhematuria. OPERATIONS PERFORMED 1. Cystoscopy and removal of double J stent from the right side. 2. Right retrograde pyelograms under fluoroscopic control. 3. Right ureteroscopy with laser fragmentation of stones. 4. Stone basketing out of the kidney on the right side. 5. Left retrograde pyelogram not related to the contralateral side done with different instrument. 6. Interpretation of x-ray. Radiologist not present. 7. Supervision of fluoroscopy. Radiologist not present. HOME ASSESSMENT NURSE: None. ANESTHESIA: General. CLINICAL INDICATION NOTE: This is a 52-year-old patient with history of nephrolithiasis, was brought for further assessment. Plan is ureteroscopy to assess if there are any residual stones. Procedure was discussed with the patient. He knows that he may require another stent. DESCRIPTION OF PROCEDURE AND FINDINGS: After proper level of anesthesia was achieved, the patient was placed in lithotomy position, prepped and draped in sterile fashion. The urethra inspected, was unremarkable. The outlet was normal. The bladder mucosa was normal. Double J stent was protruding from the right ureteral orifice. It was grasped, pulled out. An open-end catheter was inserted and retrograde pyelogram demonstrated some dilation of the collecting system on the right side and question of a stone. A guide wire was kept in place and a flexible ureteroscope was inserted. Small fragment of stone was identified and fragmented further with 290 micron laser fiber. It was elected not to put a stent. A basket was inserted and fragments were removed and sent to the lab. Following this, left retrograde pyelograms were done with another open-end catheter. No intrinsic lesions were identified. The patient tolerated the procedure well. He was transferred in satisfactory condition to recovery room. He will be followed in the office. Job#: [id number] GE
== END | disposition home or self-care (01) ==
LOC: OR 08:28
PROVIDERS: ATTEND Urology
DX: N20.0 Calculus of kidney (principal); Z46.6 Encounter for fitting and adjustment of urinary device; N13.30 Unspecified hydronephrosis; I10 Essential (primary) hypertension; K21.9 Gastro-esophageal reflux disease without esophagitis
CPT/HCPCS: 52353; 74420; 88300; 93005; J0690; J1100; J2001; J2250; J2405; J3490; Q9967

== ENCOUNTER → 2018-02-07 | Outpatient (CLI) | payer BC ==
[~2018-02-07] MED LIST changes: -CEFAZOLIN SOD 1 GM VIAL ONE; -DEXAMETHASONE SOD PHOS INJ 4 MG/ML VIAL ONE; -FENTANYL CITRATE/PF 100MCG/2 ML INJ ONE; -GLYCOPYRROLATE INJ 1MG/ 5 ML SYR ONE; -IOPAMIDOL 300MG/ML 50ML INFUS..BTL IV ONE; -LIDOCAINE HCL 2% LOCAL INJ 5 ML SDV VIAL INJ ONE; -MIDAZOLAM HCL 2 MG/2 ML VIAL ONE; -NEOSTIGMINE 5 MG/5ML SYR ONE; -ONDANSETRON HCL INJ 2 MG/ML VIAL ONE; -PROPOFOL IV EMULSION 10 MG/ML 20 ML VIAL ONE; -ROCURONIUM BROMIDE 10 MG/ML 5ML VIAL ONE; -SEVOFLURANE INHAL SOLN 250 ML PEN BTL ONE; -SUCCINYLCHOLINE 200 MG/10 ML SYR ONE
--- NOTE | 2018-02-07 14:05 | Diagnostic Imaging Report ---
Exam: KUB. Clinical History: Kidney stones Comparison: None Findings: Frontal view of the abdomen demonstrates a nonobstructive bowel gas pattern with moderate retained stool. There are no suspicious calcifications. Surgical clips are seen in the gallbladder fossa. No acute bone abnormality. Impression: Findings which could be due to constipation. No definite urinary tract calcifications are seen Signed by: Dr. Hans Lamas M.D. on 02/07/2018 2:01 PM
== END ==
LOC: RAD 13:24
PROVIDERS: ATTEND Urology
DX: N20.0 Calculus of kidney (principal)
CPT/HCPCS: 74018

== ENCOUNTER → 2018-04-18 | Outpatient (CLI) | payer BC ==
--- NOTE | 2018-04-18 11:21 | Diagnostic Imaging Report ---
Exam: Abdominal film Clinical History: Renal calculus Comparison: 02/07/2018 DISCUSSION: The bowel gas pattern is nonobstructive. Cholecystectomy clips. Median sternotomy wires. No mass effect or organomegaly. No suspicious calcifications project over the renal shadows, or expected ureteral courses. Pelvic phleboliths. Regional skeletal structures are intact. IMPRESSION: No plain film evidence of urolithiasis. Signed by: Dr. Kristopher Guzman M.D. on 04/18/2018 11:17 AM
--- NOTE | 2018-04-18 12:00 | Diagnostic Imaging Report ---
EXAMINATION: Renal ultrasound. CLINICAL HISTORY :Renal calculus, hematuria COMPARISON: Plain film of the abdomen 04/18/2018, CT abdomen and pelvis without contrast 10/17/2017. TECHNIQUE: Grayscale and color Doppler evaluation of the kidneys and bladder was performed in transverse and longitudinal planes. DISCUSSION: RIGHT KIDNEY: The right kidney measures 11.3 cm in length and shows normal renal cortical echogenicity. No hydronephrosis, shadowing calculi or solid mass lesions. LEFT KIDNEY: The left kidney measures 12.1 cm in length and shows normal renal cortical echogenicity. Exophytic anechoic cyst projecting superolaterally from the left kidney measuring 2.4 x 1.6 x 1.4 cm. No hydronephrosis, calculus, or solid mass lesion. BLADDER: Unremarkable. Right and left ureteral jets are identified. Prostate: 4.1 x 3.8 x 4.8 cm, estimated volume 38 cc IMPRESSION: No sonographic evidence of urolithiasis. CT abdomen and pelvis without contrast may be obtained for more sensitive evaluation if clinically warranted. Signed by: Dr. Kristopher Guzman M.D. on 04/18/2018 11:56 AM
== END ==
LOC: US 10:37
PROVIDERS: ATTEND Urology
DX: N20.0 Calculus of kidney (principal); R31.21 Asymptomatic microscopic hematuria
CPT/HCPCS: 74018; 76770